=== PATIENT | female | born 1940 | race Caucasian/White ===

== ENCOUNTER 2018-02-04 10:32 | Outpatient (CLI) | payer MEDICARE | END 2018-02-04 10:33 | disposition home or self-care (01) | LOC: BICMAMMO 10:32 | PROVIDERS: ATTEND Internal Medicine | DX: Z12.31 Encounter for screening mammogram for malignant neoplasm of breast (principal) | CPT/HCPCS: 77063; 77067 ==

== ENCOUNTER 2018-02-09 09:10 | Outpatient (CLI) | payer MEDICARE | END 2018-02-09 09:11 | disposition home or self-care (01) | LOC: BICMAMMO 09:10 | PROVIDERS: ATTEND Internal Medicine | DX: M81.0 Age-related osteoporosis without current pathological fracture (principal); M85.89 Other specified disorders of bone density and structure, multiple sites | CPT/HCPCS: 77080 ==

== ENCOUNTER 2018-06-16 10:59 | Outpatient (CLI) | payer MEDICARE ==
--- NOTE | 2018-06-16 12:53 | RAD ---
PA AND LATERAL CHEST: History: Chest pain. FINDINGS: Comparison made with exam of 12-22-16. The heart size is borderline. The lungs are expanded without focal areas of consolidations, pneumotho raxes, or pleural effusions. There are degenerative changes in the spine. IMPRESSION: No radiographic evidence of acute cardiopulmonary process. POS: [facility]
--- NOTE | 2018-06-16 13:04 | RAD ---
LEFT RIBS 3 VIEWS: HISTORY: Left rib pain. FINDINGS: No fracture. No cortical irregularity or periosteal reaction. IMPRESSION: No fracture. POS: [facility]
== END 2018-06-16 11:00 | disposition home or self-care (01) ==
LOC: BICRAD 10:59
PROVIDERS: ATTEND Internal Medicine
DX: R07.9 Chest pain, unspecified (principal); I10 Essential (primary) hypertension
CPT/HCPCS: 71046

== ENCOUNTER 2019-07-11 12:40 | Outpatient (CLI) | payer MEDICARE ==
--- NOTE | 2019-07-11 13:43 | MMO ---
Bilateral MAMMO Bilat Screen [facility]. CLINICAL HISTORY: Patient is 78 years old and is seen for screening. The patient has no family history of breast cancer. The patient has no personal history of cancer. VIEWS: The views performed were: bilateral craniocaudal with tomosynthesis and bilateral mediolateral oblique with tomosynthesis. FILMS COMPARED: The present examination has been compared to prior imaging studies performed at [facility] on 12/15/2013, 07/12/2015, 08/11/2016 and 02/04/2018. This study has been interpreted with the assistance of computer-aided detection. MAMMOGRAM FINDINGS: There are scattered fibroglandular densities. There are stable benign appearing calcifications seen in both breasts. There are no suspicious masses, suspicious calcifications, or new areas of architectural distortion. IMPRESSION: THERE IS NO MAMMOGRAPHIC EVIDENCE OF MALIGNANCY. A ROUTINE FOLLOW-UP MAMMOGRAM IN 1 YEAR IS RECOMMENDED. THE RESULTS OF THIS EXAM WERE SENT TO THE PATIENT. ACR BI-RADS Category 2 - Benign finding MAMMOGRAPHY NOTE: 1. A negative mammogram report should not delay a biopsy if a dominant of clinically suspicious mass is present. 2. Approximately 10% to 15% of breast cancers are not detected by mammography. 3. Adenosis and dense breasts may obscure an underlying neoplasm. Reported by: MICHELLE HICKEY MD Electonically Signed: [id number]
== END 2019-07-11 12:41 | disposition home or self-care (01) ==
LOC: BICMAMMO 12:40
PROVIDERS: ATTEND Internal Medicine
DX: Z12.31 Encounter for screening mammogram for malignant neoplasm of breast (principal)
CPT/HCPCS: 77063; 77067

== ENCOUNTER 2019-07-11 13:29 | Outpatient (CLI) | payer MEDICARE, OTHER ==
--- NOTE | 2019-07-11 14:13 | RAD ---
EXAM: Chest PA and lateral: HISTORY: Hypertension COMPARISON: 06/16/2018 FINDINGS: Heart: Normal cardiac silhouette Aorta: Atherosclerosis and elongation Pulmonary vessels: Normal Costophrenic angles: Costophrenic angles are clear. Lungs: No consolidation or masses. Chronic changes. Pneumothorax: No pneumothorax Osseous structures: No osseous abnormalities IMPRESSION: No acute cardiopulmonary process.
--- NOTE | 2019-07-11 14:14 | RAD ---
Exam: 3 views left RIBS HISTORY: Pain. Comparison 06/16/2018 FINDINGS: No fracture, cortical irregularity or periosteal reaction. IMPRESSION: No fracture.
--- NOTE | 2019-07-11 14:14 | RAD ---
THREE VIEWS THORACIC SPINE: HISTORY: Cephalgia. FINDINGS: Thoracic spine vertebral body height is maintained. No fracture. Mild loss of disc space height and o steophyte formation throughout the mid thoracic spine. No malalignment. IMPRESSION: Multilevel degenerative change. No fracture. Transcribed Date/Time: 07/11/2019 2:25 PM
--- NOTE | 2019-07-11 14:14 | RAD ---
TWO VIEWS LUMBAR SPINE: HISTORY: Dorsalgia. Pain. FINDINGS: Five lumbar-type vertebrae. 2 body height is maintained. No fracture. No significant spondylolisthesi s or spondylolysis. Mild/moderate degenerative change at the lumbosacral junction. IMPRESSION: Mild chronic degenerative changes lumbosacral junction. Transcribed Date/Time: 07/11/2019 2:26 PM
== END 2019-07-11 13:30 | disposition home or self-care (01) ==
LOC: BICRAD 13:29
PROVIDERS: ATTEND Internal Medicine
DX: R07.81 Pleurodynia (principal); I10 Essential (primary) hypertension; M54.5 Low back pain; M54.6 Pain in thoracic spine; M47.817 Spondylosis without myelopathy or radiculopathy, lumbosacral region; M47.814 Spondylosis without myelopathy or radiculopathy, thoracic region
CPT/HCPCS: 71046; 72072; 72100

== ENCOUNTER 2022-01-28 10:19 | Outpatient (CLI) | payer MEDICARE | END 2022-01-28 10:20 | disposition home or self-care (01) | LOC: BICMAMMO 10:19 | PROVIDERS: ATTEND Internal Medicine | DX: Z12.31 Encounter for screening mammogram for malignant neoplasm of breast (principal); Z13.820 Encounter for screening for osteoporosis; M85.89 Other specified disorders of bone density and structure, multiple sites; Z78.0 Asymptomatic menopausal state | CPT/HCPCS: 77063; 77067; 77080 ==